=== PATIENT | female | born 1965 | race Caucasian/White ===

== ENCOUNTER 2021-04-15 11:48 | Outpatient (CLI) | payer OTHER | END 2021-04-15 23:59 | disposition home or self-care (01) | LOC: STAR 11:48 | PROVIDERS: ATTEND Plastic Surgery | DX: Z02.9 Encounter for administrative examinations, unspecified (principal) ==

== ENCOUNTER 2021-04-22 12:55 | Day surgery (SDC) | payer OTHER ==
[~2021-04-22] VITALS: Ht 167.6 cm; Wt 57.8 kg
[2021-04-22] MEDS ORDERED: MIDAZOLAM 1 MG/ML, 2ML ONE (13:18)
[2021-04-22 13:19] VITALS: BP 123/75
[2021-04-22] MEDS ORDERED: FENTANYL PF 250 MCG/5ML ONE (13:19)
[2021-04-22] MEDS ORDERED: CHLORHEXIDINE 15 ML UDC ONE (13:25)
[2021-04-22] MEDS ORDERED: CHLORHEXIDINE 15 ML UDC PO ONE (13:30)
[2021-04-22] MEDS ORDERED: LACTATED RINGERS 1,000 ML IV SCH (13:30)
[2021-04-22] MEDS ORDERED: SCOPOLAMINE 1MG PATCH TD ONE (13:41)
[2021-04-22] MEDS ORDERED: PROPOFOL 50 ML ONE (13:43)
[2021-04-22] MEDS ORDERED: BUPIVACAINE/PF 0.5% ONE ×2 (13:52→14:46)
[2021-04-22] MEDS ORDERED: EPINEPHRINE 1 MG/ML, 1ML ONE (13:53)
[2021-04-22] MEDS ORDERED: PROMETHAZINE 25 MG/ML, 1ML IVPush PRN (14:00)
[2021-04-22] MEDS ORDERED: HYDROmorphone 1 MG/ML, 1ML INJ IVPush PRN (14:00)
[2021-04-22] MEDS ORDERED: ACETAMINOPHEN 325 MG TABLET PO PRN (14:00)
[2021-04-22] MEDS ORDERED: OXYcodone 5 MG/5 ML ORAL.SOL UDC PO PRN (14:00)
[2021-04-22] MEDS ORDERED: MEPERIDINE/PF 25MG/0.5ML IVPush PRN (14:00)
[2021-04-22] MEDS ORDERED: LORazepam 2 MG/ML, 1ML IVPush PRN (14:00)
[2021-04-22] MEDS ORDERED: FENTANYL PF 100 MCG/2ML IV PRN (14:00)
[2021-04-22] MEDS ORDERED: DEXAMETHASONE 4 MG/ML, 5ML ONE (14:04)
[2021-04-22] MEDS ORDERED: GENTAMICIN 80 MG/2 ML ONE (14:19)
[2021-04-22] MEDS ORDERED: CEFAZOLIN 1,000 MG ONE ×2 (14:19→14:56)
[2021-04-22] MEDS ORDERED: NEOSTIGMINE 1 MG/ML, 10ML ONE (14:56)
[2021-04-22] MEDS ORDERED: ONDANSETRON 2MG/ML, 2ML ONE (14:56)
[2021-04-22] MEDS ORDERED: ROCURONIUM 10MG/ML,5ML ONE (14:56)
[2021-04-22] MEDS ORDERED: GLYCOPYRROLATE 0.2MG/1ML, 5ML ONE (14:56)
[2021-04-22] MEDS ORDERED: PROPOFOL 10 MG/ML, 20ML ONE (14:56)
[2021-04-22] MEDS ORDERED: LIDOCAINE-MPF 2% ,5ML ONE (14:56)
== END 2021-04-22 16:50 | disposition home or self-care (01) ==
LOC: OUT 12:55
PROVIDERS: ATTEND Plastic Surgery
DX: T85.44XA Capsular contracture of breast implant, initial encounter (principal); Z85.3 Personal history of malignant neoplasm of breast; Z92.3 Personal history of irradiation; Y83.8 Other surgical procedures as the cause of abnormal reaction of the patient, or of later complication, without mention of misadventure at the time of the procedure
CPT/HCPCS: 19342; C1729; C1789; J0171; J0690; J1100; J1580; J2250; J2405; J2704; J2710; J3010; J7120